=== PATIENT | female | born 2000 | race Caucasian/White ===

== ENCOUNTER 2018-11-21 13:25 | Emergency (ER) | payer OTHER ==
[~2018-11-21] VITALS: Ht 180.3 cm; Wt 117.9 kg
[~2018-11-21 13:25] MED LIST: BACTRIM DS TAB1 EACH PO; BUSPIRONE HCL10 MG; NOHOMEMEDICATIONS; ONDANSETRON HCL4 M3 PO; PHENAZOPYRIDIN200 M2 PO
[2018-11-21] MEDS ORDERED: TRAZODONE HCL100 MG PO (13:40)
[2018-11-21] MEDS ORDERED: WELLBUTRIN 75 M75 M1 PO (13:40)
[2018-11-21] MEDS ORDERED: HYDROXYZINE HCL25 M1 PO (13:40)
[2018-11-21] MEDS ORDERED: ACETAMINOP-CODEI5 ML PO (13:57)
[2018-11-21] MEDS ORDERED: NAPROSYN500 MG PO (14:44)
[2018-11-21 15:23] VITALS: BP 145/80
== END 2018-11-21 15:24 | disposition home or self-care (01) ==
LOC: M.ERS 13:25
DX: M25.562 Pain in left knee (principal); F32.9 Major depressive disorder, single episode, unspecified

== ENCOUNTER 2018-11-25 12:55 | Emergency (ER) | payer OTHER ==
[~2018-11-25] VITALS: Ht 180.3 cm; Wt 117.9 kg
[~2018-11-25 12:55] MED LIST changes: +ACETAMINOP-CODEI5 ML PO; +HYDROXYZINE HCL25 M1 PO; +NAPROSYN500 MG PO; +TRAZODONE HCL100 MG PO; +WELLBUTRIN 75 M75 M1 PO
[2018-11-25] MEDS ORDERED: ACETAMINOPHEN-1 EAC1 PO (14:10)
[2018-11-25 14:19] VITALS: BP 131/65
== END 2018-11-25 14:19 | disposition home or self-care (01) ==
LOC: M.ERS 12:55
DX: M25.562 Pain in left knee (principal); M25.552 Pain in left hip; F32.9 Major depressive disorder, single episode, unspecified

== ENCOUNTER 2019-03-23 18:23 | Emergency (ER) | payer OTHER ==
[~2019-03-23] VITALS: Ht 180.3 cm; Wt 113.4 kg
[~2019-03-23 18:23] MED LIST changes: +ACETAMINOPHEN-1 EAC1 PO
[2019-03-23 18:56] LABS: URINE BLOOD NEGATIVE (Negative); URINE CLARITY CLEAR; URINE COLOR YELLOW; URINE GLUCOSE-RANDOM NEGATIVE (Negative); URINE KETONES 1+ (Negative); URINE LEUKOCYTES-REFLEX NEGATIVE (Negative); URINE NITRITE-REFLEX NEGATIVE (Negative); URINE PROTEIN TRACE (Negative); URINE SPECIFIC GRAVITY >= 1.030 (1.005-1.030); URINE UROBILINOGEN 0.2 E.U./dl (0.2-1.0)
[2019-03-23 18:59] LABS: ICTOTEST (BILI CONFIRMATORY) Negative (Negative); URINE BILIRUBIN 1+ (Negative)
[2019-03-23 19:12] LABS: ABSOLUTE LYMPHOCYTES 0.9 thou/uL (0.8-5.3); ABSOLUTE MONOCYTES 0.6 thou/uL (0.0-1.2); BASOPHILS 0.2 %; EOSINOPHILS 0.4 %; HEMATOCRIT 42.5 % (37.0-47.0); HEMOGLOBIN 14.5 gm/dL (12.0-15.0); LYMPHOCYTES 12.2 %; MCH 29.5 pg (26.0-34.0); MCV 86.7 fL (80.0-100.0); MONOCYTES 7.8 %; MPV 10.3 fl. (7.2-11.1); NUCLEATED RBCS 0 /100WBC; PLATELET COUNT* 151 thou/uL (150-400); POLYS 79.4 %; RBC 4.91 mil/uL (4.20-5.00); RDW-CV 13.5 % (10.5-14.5); WBC 7.5 thou/uL (4.0-11.0)
[2019-03-23 19:24] LABS: CREATININE 0.9 mg/dL (0.6-1.3); POTASSIUM 3.5 mmol/L (3.5-5.1)
[2019-03-23 19:28] LABS: TOTAL PROTEIN 7.3 g/dL (6.4-8.2)
[2019-03-23] MEDS ORDERED: OMEPRAZOLE 20 M20 M1 PO (20:15)
[2019-03-23 20:27] VITALS: BP 126/76
== END 2019-03-23 20:28 | disposition home or self-care (01) ==
LOC: M.ERS 18:23
PROVIDERS: Nurse Practitioner Psychiatric/Mental Health
DX: R11.2 Nausea with vomiting, unspecified (principal); R63.0 Anorexia; R03.0 Elevated blood-pressure reading, without diagnosis of hypertension; F32.9 Major depressive disorder, single episode, unspecified

== ENCOUNTER → 2019-07-09 | Outpatient (CLI) | payer OTHER ==
[~2019-07-09] MED LIST changes: +OMEPRAZOLE 20 M20 M1 PO
== END ==
LOC: M.MRI 08:22
DX: M23.004 Cystic meniscus, unspecified medial meniscus, left knee (principal)

== ENCOUNTER 2019-08-23 19:19 | Emergency (ER) | payer OTHER ==
[~2019-08-23] VITALS: Ht 180.3 cm; Wt 113.4 kg
[2019-08-23] MEDS ORDERED: PREVACID15 MG PO (19:44)
[2019-08-23] MEDS ORDERED: KLONOPIN1 MG PO (19:45)
[2019-08-23] MEDS ORDERED: PROZAC40 MG PO (19:45)
[2019-08-23] MEDS ORDERED: ABILIFY 2 MG2 M1 PO (19:45)
[2019-08-23] MEDS ORDERED: LESSINA1 EACH PO (19:46)
[2019-08-23] MEDS ORDERED: ZOFRAN4 MG PO (19:46)
[2019-08-23 19:57] LABS: URINE BILIRUBIN NEGATIVE (Negative); URINE BLOOD NEGATIVE (Negative); URINE CLARITY CLEAR; URINE COLOR YELLOW; URINE GLUCOSE-RANDOM NEGATIVE (Negative); URINE KETONES NEGATIVE (Negative); URINE LEUKOCYTES-REFLEX NEGATIVE (Negative); URINE NITRITE-REFLEX NEGATIVE (Negative); URINE PROTEIN NEGATIVE (Negative); URINE UROBILINOGEN 0.2 E.U./dl (0.2-1.0)
[2019-08-23 20:12] LABS: ABSOLUTE LYMPHOCYTES 2.3 thou/uL (0.8-5.3); ABSOLUTE MONOCYTES 0.6 thou/uL (0.0-1.2); ABSOLUTE NEUTROPHILS 5.4 thou/uL (1.6-8.1); BASOPHILS 0.5 %; EOSINOPHILS 0.4 %; HEMATOCRIT 41.1 % (37.0-47.0); HEMOGLOBIN 13.9 gm/dL (12.0-15.0); LYMPHOCYTES 27.8 %; MCH 29.6 pg (26.0-34.0); MCHC 33.9 g/dL (28.0-37.0); MCV 87.3 fL (80.0-100.0); MONOCYTES 7.7 %; MPV 9.5 fl. (7.2-11.1); NUCLEATED RBCS 0 /100WBC; PLATELET COUNT* 197 thou/uL (150-400); POLYS 63.6 %; RDW-CV 13.1 % (10.5-14.5); WBC 8.4 thou/uL (4.0-11.0)
[2019-08-23 20:19] LABS: CALCIUM 8.6 mg/dL (8.5-10.1); CREATININE 0.9 mg/dL (0.6-1.3); POTASSIUM 3.5 mmol/L (3.5-5.1)
[2019-08-23 20:24] LABS: ALBUMIN 3.7 g/dL (3.4-5.0); TOTAL BILIRUBIN 0.4 mg/dL (<0.1-1.0); TOTAL PROTEIN 6.9 g/dL (6.4-8.2)
[2019-08-23] MEDS ORDERED: MIRALAX17 GM PO (21:45)
[2019-08-23] MEDS ORDERED: GAS-X125 M1 PO (21:45)
[2019-08-23] MEDS ORDERED: BENTYL 10 MG CA10 M1 PO (21:45)
[2019-08-23 22:05] VITALS: BP 129/84
== END 2019-08-23 22:05 | disposition home or self-care (01) ==
LOC: M.ERS 19:19
PROVIDERS: Nurse Practitioner Psychiatric/Mental Health
DX: K59.03 Drug induced constipation (principal); T40.2X5A Adverse effect of other opioids, initial encounter; F32.9 Major depressive disorder, single episode, unspecified; Y92.89 Other specified places as the place of occurrence of the external cause

== ENCOUNTER → 2019-11-07 | Outpatient (CLI) | payer OTHER ==
[~2019-11-07] MED LIST changes: +ABILIFY 2 MG2 M1 PO; +BENTYL 10 MG CA10 M1 PO; +GAS-X125 M1 PO; +KLONOPIN1 MG PO; +LESSINA1 EACH PO; +MIRALAX17 GM PO; +PREVACID15 MG PO; +PROZAC40 MG PO; +ZOFRAN4 MG PO
== END ==
LOC: M.MRI 13:05
PROVIDERS: ATTEND Orthopaedic Surgery
DX: S83.222A Peripheral tear of medial meniscus, current injury, left knee, initial encounter (principal); M25.462 Effusion, left knee; M22.42 Chondromalacia patellae, left knee; X58.XXXA Exposure to other specified factors, initial encounter; Y93.89 Activity, other specified; Y92.89 Other specified places as the place of occurrence of the external cause; Y99.8 Other external cause status

== ENCOUNTER 2019-12-22 10:07 | Emergency (ER) | payer OTHER ==
[~2019-12-22] VITALS: Ht 180.3 cm; Wt 117.9 kg
[2019-12-22] MEDS ORDERED: DESYREL150 MG PO (10:17)
[2019-12-22] MEDS ORDERED: PERCOCET 5-3251 EACH PO (10:46)
[2019-12-22 10:53] VITALS: BP 144/73
== END 2019-12-22 10:54 | disposition home or self-care (01) ==
LOC: M.ERS 10:07
DX: G89.18 Other acute postprocedural pain (principal); Z76.0 Encounter for issue of repeat prescription; M25.562 Pain in left knee

== ENCOUNTER 2020-01-20 18:55 | Emergency (ER) | payer OTHER ==
[~2020-01-20] VITALS: Ht 180.3 cm; Wt 117.9 kg
[~2020-01-20 18:55] MED LIST changes: +DESYREL150 MG PO; +PERCOCET 5-3251 EACH PO
[2020-01-20] MEDS ORDERED: LORCET 5-325 M1 EACH PO (19:07)
[2020-01-20] MEDS ORDERED: PERCOCET 5-3251 EACH PO (20:12)
[2020-01-20 20:22] LABS: HEMATOCRIT 40.6 % (37.0-47.0); HEMOGLOBIN 13.6 gm/dL (12.0-15.0); MCH 29.8 pg (26.0-34.0); MCHC 33.6 g/dL (28.0-37.0); MCV 88.5 fL (80.0-100.0); MPV 9.1 fl. (7.2-11.1); RBC 4.59 mil/uL (4.20-5.00); RDW-CV 12.9 % (10.5-14.5); WBC 7.3 thou/uL (4.0-11.0)
[2020-01-20 20:25] LABS: CREATININE 1.1 mg/dL (0.6-1.3); POTASSIUM 3.6 mmol/L (3.5-5.1)
[2020-01-20 20:30] LABS: PROTIME 10.3 Seconds (9.20-11.50)
[2020-01-20 20:31] VITALS: BP 119/76
== END 2020-01-20 20:33 | disposition home or self-care (01) ==
LOC: M.ERS 18:55
PROVIDERS: Personal Emergency Response Attendant
DX: G89.18 Other acute postprocedural pain (principal); M25.462 Effusion, left knee; M25.562 Pain in left knee

== ENCOUNTER → 2020-03-26 | Outpatient (CLI) | payer OTHER ==
[~2020-03-26] MED LIST changes: +LORCET 5-325 M1 EACH PO
== END ==
LOC: M.MRI 08:02
PROVIDERS: ATTEND Orthopaedic Surgery
DX: Z48.89 Encounter for other specified surgical aftercare (principal); R60.9 Edema, unspecified

== ENCOUNTER → 2021-01-22 | Outpatient (CLI) | payer OTHER | LOC: M.MRI 13:41 | PROVIDERS: ATTEND Nurse Practitioner Family | DX: R55 Syncope and collapse (principal) ==

== ENCOUNTER 2021-04-28 16:13 | Emergency (ER) | payer OTHER ==
[~2021-04-28] VITALS: Ht 180.3 cm; Wt 127.0 kg
[2021-04-28] MEDS ORDERED: BIRTH CONTROL (16:32)
[2021-04-28 17:06] LABS: INFLUENZA A ANTIGEN Negative (Negative); INFLUENZA B ANTIGEN Negative (Negative)
[2021-04-28] MEDS ORDERED: MEDROLDOSEPACK PO (17:15)
[2021-04-28] MEDS ORDERED: TESSALON PERLE100 MG PO (17:15)
[2021-04-28] MEDS ORDERED: PROAIR HFA8.5 GM INH (17:15)
[2021-04-28 17:22] VITALS: BP 127/84
== END 2021-04-28 17:23 | disposition home or self-care (01) ==
LOC: M.ERS 16:13
PROVIDERS: Physician Assistant
DX: J20.9 Acute bronchitis, unspecified (principal); Z20.822 Contact with and (suspected) exposure to COVID-19; F32.9 Major depressive disorder, single episode, unspecified; Z98.890 Other specified postprocedural states; Z79.899 Other long term (current) drug therapy

== ENCOUNTER 2021-05-02 11:00 | Emergency (ER) | payer OTHER ==
[~2021-05-02] VITALS: Ht 180.3 cm; Wt 127.0 kg
[~2021-05-02 11:00] MED LIST changes: +BIRTH CONTROL; +MEDROLDOSEPACK PO; +PROAIR HFA8.5 GM INH; +TESSALON PERLE100 MG PO
[2021-05-02 11:06] VITALS: BP 128/84
[2021-05-02] MEDS ORDERED: PROMETHAZI6.25 MG/5 PO (12:01)
[2021-05-02] MEDS ORDERED: APAP W/CODEINE1 TA2 PO (12:01)
[2021-05-02] MEDS ORDERED: ZPAK PO (12:18)
== END 2021-05-02 12:20 | disposition home or self-care (01) ==
LOC: M.ERS 11:00
DX: J20.9 Acute bronchitis, unspecified (principal); Z20.822 Contact with and (suspected) exposure to COVID-19; F32.9 Major depressive disorder, single episode, unspecified; Z90.89 Acquired absence of other organs; Z79.899 Other long term (current) drug therapy

== ENCOUNTER 2021-05-29 14:10 | Emergency (ER) | payer OTHER ==
[~2021-05-29] VITALS: Ht 180.3 cm; Wt 127.0 kg
[~2021-05-29 14:10] MED LIST changes: +APAP W/CODEINE1 TA2 PO; +PROMETHAZI6.25 MG/5 PO; +ZPAK PO
[2021-05-29 14:52] LABS: URINE BILIRUBIN NEGATIVE (Negative); URINE BLOOD NEGATIVE (Negative); URINE CLARITY CLEAR; URINE COLOR YELLOW; URINE GLUCOSE-RANDOM NEGATIVE (Negative); URINE KETONES TRACE (Negative); URINE LEUKOCYTES 1+ (Negative); URINE NITRITE NEGATIVE (Negative); URINE PROTEIN NEGATIVE (Negative); URINE SPECIFIC GRAVITY >= 1.030 (1.005-1.030); URINE UROBILINOGEN 0.2 E.U./dl (0.2-1.0)
[2021-05-29 15:07] LABS: SQUAMOUS 4-10 Moderate /LPF (0-3)
[2021-05-29 15:08] LABS: BACTERIA None Seen /HPF (None Seen); CASTS None Seen /LPF (None Seen); CRYSTALS None Seen /LPF (None Seen); URINE RBC None Seen /HPF (0-2); URINE WBC 6-15 Few /HPF (0-5)
[2021-05-29 15:09] LABS: ABSOLUTE LYMPHOCYTES 1.9 thou/uL (0.8-5.3); ABSOLUTE MONOCYTES 0.7 thou/uL (0.0-1.2); ABSOLUTE NEUTROPHILS 4.3 thou/uL (1.6-8.1); BASOPHILS 0.6 %; EOSINOPHILS 0.4 %; HEMATOCRIT 39.6 % (37.0-47.0); HEMOGLOBIN 13.2 gm/dL (12.0-15.0); LYMPHOCYTES 26.7 %; MCHC 33.3 g/dL (28.0-37.0); MCV 87.1 fL (80.0-100.0); MONOCYTES 10.2 %; MPV 9.2 fl. (7.2-11.1); NUCLEATED RBCS 0 /100WBC; PLATELET COUNT* 189 thou/uL (150-400); POLYS 62.1 %; RBC 4.55 mil/uL (4.20-5.00); RDW-CV 13.1 % (10.5-14.5); WBC 6.9 thou/uL (4.0-11.0)
[2021-05-29] MEDS ORDERED: MACROBID 100 M100 MG PO (15:16)
[2021-05-29 15:20] LABS: CALCIUM 8.3 mg/dL (8.5-10.1); CREATININE 0.9 mg/dL (0.6-1.3); POTASSIUM 3.8 mmol/L (3.5-5.1)
[2021-05-29 15:24] LABS: ALBUMIN 3.3 g/dL (3.4-5.0); TOTAL BILIRUBIN 0.2 mg/dL (<0.1-1.0); TOTAL PROTEIN 6.4 g/dL (6.4-8.2)
[2021-05-29 15:31] VITALS: BP 143/93
== END 2021-05-29 15:31 | disposition home or self-care (01) ==
LOC: M.ERS 14:10
PROVIDERS: Student in an Organized Health Care Education/Training Program
DX: K64.9 Unspecified hemorrhoids (principal); N39.0 Urinary tract infection, site not specified; F32.9 Major depressive disorder, single episode, unspecified; Z98.890 Other specified postprocedural states